=== PATIENT | male | born 1960 | race Caucasian/White ===

== ENCOUNTER 2020-06-16 10:38 | Day surgery (SDC) | payer SELFPAY ==
--- NOTE | 2020-06-12 14:24 | RAD REPORT ---
EXAM DESCRIPTION: RAD - Chest Pa And Lat (2 Views) - 06/12/2020 1:42 pm CLINICAL HISTORY: pre op Chest pain. COMPARISON: Chest Single View dated 03/01/2017 FINDINGS: The lungs are clear. The heart is normal in size. No displaced fractures. IMPRESSION: No acute or concerning finding suspected.
[2020-06-12 14:42] LABS: Urine Appearance CLEAR; Urine Bilirubin NEGATIVE (NEG); Urine Blood NEGATIVE (NEG); Urine Color YELLOW; Urine Glucose NEGATIVE (NEG); Urine Protein NEGATIVE (NEG); Urine Urobilinogen 0.2 mg/dL (0.2-1.0); Urine pH 7.5 (5.0-7.0)
[2020-06-12 14:43] LABS: Urine Microscopic Reflex NO UMIC
[~2020-06-16 10:38] MED LIST: AMPICILLIN SODIUM 2 GM in NA CHLORIDE 0.9% 100 ML IVPB SCH; Gentamicin Inj 240 MG in NA CHLORIDE 0.9% 100 ML IV SCH
--- OUTSIDE RECORDS SUMMARY | 2020-06-16 10:40 | XMS REPORT ---
:1960 Author Organization [facility] Address [address] [facility] [place] [address] Care Team Providers Name Role Phone Stephan Min Unavailable [phone] PROBLEMS Type Condition ICD9-CM [id number] Onset Condition SNOMED Code Notes Code Code Dates Status Problem BPH loc w urin N40.1 Active 819852147 obs/LUTS Problem Voiding N39.8 Active 177351911 dysfunction Problem History of Z87.448 Active 299065919 urethral stricture Problem Incomplete R33.9 Active 661835075 emptying of bladder ALLERGIES Allergen (clinical Drug/Non Drug Reaction Allergy Type Onset Date S tatus drug ingredient) Allergy documented on EMR CIPRO Unknown Non Drug Allergy Active ENCOUNTERS from 1960 to 2020-05-28 Encounter Location Date Provider Diagnosis [place] [facility] May, Stephan Min BPH loc w urin Specialty/Urology [address] [place], obs/L UTS N40.1 ; [place] [id number] Incomplete emp tying of bladder R33. 9 and Voiding dysfunc tion N39.8 IMMUNIZATIONS No Information SOCIAL HISTORY Tobacco Use: Social History Observation Description Date Details (start date - stop date) Never Smoker Sex Assigned At : Social History Observation Description Sex Assigned At Unknown Alcohol Screen Question Answer Notes Did you have a drink containing alcohol in the past year? No Points 0 Interpretation Negative Tobacco Use/Smoking Question Answer Notes Are you a never smoker REASON FOR REFERRAL No Information VITAL SIGNS Height 70 in May, Weight 183.6 lbs May, Temperature 98.3 degrees Fahrenheit May, BMI 26.34 kg/m2 May, Oximetry 98 % May, Blood pressure systolic 132 mm Hg May, Blood pressure diastolic 85 mm Hg May, MEDICATIONS Medication SIG (Take, Route, Frequency, Notes Start Date End Alejo e Status Duration) Uroxatral 10 MG 1 tablet immediately after the May,Dec, Unknown same meal Orally Once a day for 30 day(s) Flomax 0.4 MG 1 capsule Orally Once a day Unknown Uroxatral 10 MG 1 tablet immediately after the May,Dec, Unknown same meal Orally Once a day for 30 day(s) PROCEDURES No Information RESULTS No Results REASON FOR VISIT CYSTOSCOPY, PSA RESULTS MEDICAL (GENERAL) HISTORY Type Description Date Medical History BPH Surgical History PROSTATE SURGERY Goals Section No Information Health Concerns No Information MEDICAL EQUIPMENT No Information MENTAL STATUS No Information FUNCTIONAL STATUS No Information ASSESSMENTS Encounter Date Diagnosis Assessment Notes Treatment Notes Treatm ent Clinical Notes May, BPH loc w urin obs/LUTS (ICD-10 - N40.1) May, Incomplete emptying of bladder (ICD-10 - R33.9) May, Voiding dysfunction (ICD-10 - N39.8) PLAN OF TREATMENT Treatment Notes Test Name Order Date URINALYSIS AUTO W/O SCOPE ([id number]) 2020-05-28
--- OUTSIDE RECORDS SUMMARY | 2020-06-16 10:40 | XMS REPORT ---
:1960 Author Organization [facility] Address [address] [facility] [address] [place] [address] Care Team Providers Name Role Phone Stephan Min Unavailable [phone] PROBLEMS Type Condition ICD9-CM [id number] Onset Condition SNOMED Code Notes Code Code Dates Status Problem Incomplete R33.9 Active 782776811 emptying of bladder Problem BPH loc w urin N40.1 Active 431077894 obs/LUTS Problem History of Z87.448 Active 718850163 urethral stricture ALLERGIES Allergen (clinical Drug/Non Drug Reaction Allergy Type Onset Date S tatus drug ingredient) Allergy documented on EMR CIPRO Unknown Non Drug Allergy Active ENCOUNTERS from 1960 to 2020-05-21 Encounter Location Date Provider Diagnosis [place] 210 [facility] 200 May, Stephan Min Specialty/[place] [address] IMMUNIZATIONS No Information SOCIAL HISTORY Tobacco Use: [...] REASON FOR REFERRAL No Information VITAL SIGNS No information MEDICATIONS Medication SIG (Take, Route, Frequency, Notes Start Date End Alejo e Status Duration) Uroxatral 10 MG 1 tablet immediately after the May,Dec, Active same meal Orally Once a day for 30 day(s) Uroxatral 10 MG 1 tablet immediately after the 06 [place], 202 1 4 Aug, 2021 Active same meal Orally Once a day for 30 day(s) Flomax 0.4 MG 1 capsule Orally Once a day Active PROCEDURES No Information RESULTS No Results REASON FOR VISIT No Information MEDICAL (GENERAL) HISTORY Type Description Date Medical History BPH Surgical History PROSTATE SURGERY Goals Section No Information Health Concerns No Information MEDICAL EQUIPMENT No Information MENTAL STATUS No Information FUNCTIONAL STATUS No Information ASSESSMENTS No Information PLAN OF TREATMENT Medication Medication Name Sig Start Date Stop Date Uroxatral 10 MG 1 tablet immediately after the same meal May, 4 Dec, 2020 Orally Once a day for 30 day(s) Uroxatral 10 MG 1 tablet immediately after the same meal May, 4 Dec, 2020 Orally Once a day for 30 day(s) Next Appt Details Provider Name:Stephan Min, 09:30:00 AM, [address] [place] [address], [phone],
--- OUTSIDE RECORDS SUMMARY | 2020-06-16 10:40 | XMS REPORT | Continuity of Care Document ---
:1960 Author Organization [facility] t Address [address] [place] [address] [place] [address] Care Team Providers Name Role Phone Unavailable Unavailable Unavailable Problems This patient has no known problems. Allergies, Adverse Reactions, Alerts This patient has no known allergies or adverse reactions. Medications This patient has no known medications. Procedures This patient has no known procedures. Encounters Start End Encounter Admission Attending Care Care Encounter Source Date/Time Date/Time Type Type Clinicians Facility Department ID 2020-06-12 2020-06-12 Outpatient [facility] [id number] [facility] 2020-05-28 2020-05-28 [id number] 2020-05-20 2020-05-20 Outpatient [facility] [id number] [facility] 2020-05-20 2020-05-20 [facility] [id number] Results This patient has no known results.
--- OUTSIDE RECORDS SUMMARY | 2020-06-16 10:40 | XMS REPORT ---
:1960 Author Organization [facility] Address [address] [facility] [address] [place] [address] Care Team Providers Name Role Phone Pako Stephan Unavailable [phone] PROBLEMS Type Condition ICD9-CM [id number] Onset Condition SNOMED Code Notes Code Code Dates Status Problem BPH loc w urin N40.1 Active 250019381 obs/LUTS Problem Voiding N39.8 Active 698703402 dysfunction Problem History of Z87.448 Active 065709953 urethral stricture Problem Incomplete R33.9 Active 379711844 emptying of bladder ALLERGIES Allergen (clinical Drug/Non Drug Reaction Allergy Type Onset Date S tatus drug ingredient) Allergy documented on EMR CIPRO Unknown Non Drug Allergy Active ENCOUNTERS from 1960 to 2020-06-12 Encounter Location Date Provider Diagnosis [place] 210 [facility] 200 [place], Stephan Min Specialty/[place] [address] IMMUNIZATIONS No Information SOCIAL HISTORY Tobacco Use: [...] 10 MG 1 tablet immediately after the May, 4 Dec, 2020 Unknown same meal Orally Once a day for 30 day(s) PROCEDURES No Information RESULTS No Results REASON FOR VISIT No Information MEDICAL (GENERAL) HISTORY Type Description Date Medical History BPH Surgical History PROSTATE SURGERY Goals Section No Information Health Concerns No Information MEDICAL EQUIPMENT No Information MENTAL STATUS No Information FUNCTIONAL STATUS No Information ASSESSMENTS No Information PLAN OF TREATMENT Next Appt Details Provider Name:Stephan Min, 08:00:00 AM, [address] [place] [address], [phone],
--- OUTSIDE RECORDS SUMMARY | 2020-06-16 10:40 | XMS REPORT ---
:1960 Author Organization [facility] [place] [facility] Address [address] [facility], [address] [place] [address] Care Team Providers Name Role Phone Stephan Min Unavailable [phone] PROBLEMS Type Condition ICD9-CM [id number] Onset Condition SNOMED Code Notes Code Code Dates Status Problem Incomplete R33.9 Active 141696373 emptying of bladder Problem BPH loc w urin N40.1 Active 690739047 obs/LUTS Problem History of Z87.448 Active 311318893 urethral stricture ALLERGIES Allergen (clinical Drug/Non Drug Reaction Allergy Type Onset Date S tatus drug ingredient) Allergy documented on EMR CIPRO Unknown Non Drug Allergy Active ENCOUNTERS from 1960 to 2020-05-20 Encounter Location Date Provider Diagnosis [place] 210 [facility] May, Stephan Min BPH loc w urin Specialty/Urology [address] [place] [address], obs/L UTS N40.1 ; [place] [id number] Incomplete emp tying of bladder R33. 9 and History of urethral strict ure Z87.448 IMMUNIZATIONS No Information SOCIAL HISTORY Tobacco Use: [...] VITAL SIGNS Height 70 in May, Weight 183.4 lbs May, Temperature 98.4 degrees Fahrenheit May, BMI 26.31 kg/m2 May, Oximetry 98 % May, Blood pressure systolic 152 mm Hg May, Blood pressure diastolic 90 mm Hg May, MEDICATIONS Medication SIG (Take, [...] Information RESULTS No Results REASON FOR VISIT FISHER POUND NET OR TRAP/Urinary issues, WEAK [id number] A TURP X 10 YRS AGO MEDICAL (GENERAL) HISTORY Type Description Date Medical History BPH Surgical History PROSTATE SURGERY Goals Section No Information Health Concerns No Information MEDICAL EQUIPMENT No Information MENTAL STATUS No Information FUNCTIONAL STATUS No Information ASSESSMENTS Encounter Date Diagnosis Assessment Notes Treatment Notes Treatm ent Clinical Notes May, BPH loc w urin obs/LUTS (ICD-10 - N40.1) May, Incomplete emptying of bladder (ICD-10 - R33.9) May, History of urethral stricture (ICD-10 - Z87.448) PLAN OF TREATMENT Medication Medication Name Sig Start Date Stop Date Uroxatral 10 MG 1 tablet immediately after the same meal May, Dec, Orally Once a day for 30 day(s) Uroxatral 10 MG 1 tablet immediately after the same meal May, Dec, Orally Once a day for 30 day(s) Treatment Notes Test Name Order Date PSA (Free and Total) 2020-05-20 URINALYSIS AUTO W/O SCOPE ([id number]) 2020-05-20 PVR 2020-05-20 Next Appt Details Provider Name:Stephan Min, 09:30:00 AM, [address] [place] [address], [place], [phone],
[2020-06-16] MEDS ORDERED: FENTANYL CITR 100 MCG/2 ML ONE ×2 (10:55→11:32)
[2020-06-16] MEDS ORDERED: Ringers Lactate 1,000 ML IV ONE ×2 (11:15→13:20)
[2020-06-16 11:30] LABS: Basophils % 0.4 % (0-1.3); Hematocrit 41.8 % (39.6-49.0); Lymphocytes % 18.3 % (15.3-44.8); MPV 10.4 fL (7.6-11.3); Protime INR 0.93; RBC Red Blood Cell Count 4.79 M/uL (4.33-5.43)
[2020-06-16] MEDS ORDERED: ONDANSETRON 4 MG/2 ML VIAL ONE (11:32)
[2020-06-16] MEDS ORDERED: dexAMETHasone 10 MG/ML VIAL ONE (11:32)
[2020-06-16] MEDS ORDERED: LIDOCAINE 1% MPF 5 ML VIAL ONE (11:32)
[2020-06-16] MEDS ORDERED: propofoL 200 MG/20 ML VIAL IV ONE (11:32)
[2020-06-16] MEDS ORDERED: MIDAZOLAM HCL 2 MG/2 ML INJ ONE (11:32)
[2020-06-16 11:41] LABS: Potassium 4.1 mmol/L (3.5-5.1)
[2020-06-16] MEDS ORDERED: GLYCOPYRROLATE 0.2 MG/ML SYR ONE (11:47)
[2020-06-16] MEDS: HYDROMORPHONE HCL 1 MG/ML INJ ONE ×2 (13:05→13:10)
[2020-06-16] MEDS ORDERED: PROMETHAZINE INJ 25 MG/ML AMP ONE (13:25)
--- NOTE | 2020-06-16 13:57 | OP ---
Surgeon: MAYRA NEGRETE Preoperative Diagnoses: 1.BPH with urinary obstruction. 2.Incomplete emptying of the bladder. Postoperative Diagnoses: 1.BPH with urinary obstruction. 2.Incomplete emptying of the bladder. Principle Procedure: 1.Cystoscopy. 2.Transurethral resection of the prostate, bipolar. Indication For Procedure: Mr. Schilling presented to the Urology Clinic with bothersome urinary symptoms and moderate volume incomplete emptying. He underwent cystoscopic evaluation, which revealed some e vidence of prostatic urethral obstruction as well as a trabeculated bladder and because he had diffic ulty tolerating medical therapy and was significantly bothered, a surgical approach was 1 of his few options. He had a prior TURP years ago with another surgeon. That may have been done with a laser. Procedure In Detail: The patient was consented in the preoperative holding area before being transfe rred to the operative suite where general anesthesia was induced. He was given ampicillin and gentam icin IV antimicrobial prophylaxis. Pneumo boots were provided for DVT prophylaxis. He was placed in the lithotomy position, padded and secured to the table appropriately. The case was begun using ure thral sounds to dilate his meatus and fossa navicularis to 30-Nicaraguan. Then, using a visual obturator and a 26-Nicaraguan resectoscope sheath, the urethra was traversed and the bladder entered. The bladder was surveyed, and the ureteral orifices were orthotopic in location and there was an intravesical pr ojecting component of the median lobe that was abutting the trigone. The bladder itself was moderate ly trabeculated with some cellule formation. The prostatic urethra had a significant lateral lobar h ypertrophy and was notably very fibrotic and difficult to manipulate the scope within. As a result, I employed the bipolar loop electrode and began to resect the intravesical projection of the median l obe until the bladder neck was level with the trigone. I then resected the remainder of the median b ar down to the level of the verumontanum, which was spared. I then resected the left lateral lobe be fore turning my attention to the right lateral lobe and then any anterior lobar overhang from the severiano dder neck down to the verumontanum in order to create a widely patent trough. Once this was done, al l prostate chips were evacuated from the bladder, and a careful search for bleeding was undertaken. All bleeding vessels were pinpoint fulgurated until with the bladder decompressed, there was no ongoi ng oozing of blood. Once I was happy with the resection and the channel that had been created, I the n left his bladder full and removed the resectoscope. I then placed a 22-Nicaraguan 3-way Kaur catheter into his bladder with ease and placed 30 cc of sterile water into the balloon. The catheter was edward lee to moderate traction, and the patient was then awakened from general anesthesia, transferred to a stretcher, and then transferred to the recovery room in good condition. Complications: None. Discharge Disposition: He will follow up in the Urology Clinic on Monday for active voiding trial. He should then be discharged with instructions to continue to ensure that he is able to void with eas e over the next 6 hours. He should continue any medical therapy for BPH at this time to assist in st abilizing the bladder. Followup should thus be established with me in approximately 2 to 4 weeks lat er for interval assessment and any management considerations. He was given a prescription for Bactri m which he should take at least 24-48 hours after the catheters removed. He was also given a prescri ption for [facility] for pain management. CHIKA/MODL Voice ID: [id number] Report ID: [id number]
[2020-06-16 18:35] VITALS: TEMP 96.9
[2020-06-16 18:36] VITALS: BP 117/75; O2SAT 99
== END 2020-06-16 16:30 | disposition home or self-care (01) ==
LOC: OR 10:38
PROVIDERS: ATTEND Urology
PROC: 0TJB8ZZ Inspection of Bladder, Via Natural or Artificial Opening Endoscopic (ICD-10-PCS; principal; 2020-06-16 12:15)
DX: C61 Malignant neoplasm of prostate (principal); R33.9 Retention of urine, unspecified; N39.8 Other specified disorders of urinary system; Z20.822 Contact with and (suspected) exposure to COVID-19
CPT/HCPCS: 36415; 71046; 80048; 81003; 85025; 85610; 87086; 87088; 88305; 93005; J0290; J1100; J1170; J1580; J2250; J2405; J2550; J2704; J3010; J7120; U0002

== ENCOUNTER 2020-06-21 22:09 | Emergency (ER) | payer SELFPAY ==
--- OUTSIDE RECORDS SUMMARY | 2020-06-21 22:11 | XMS REPORT | Continuity of Care Document ---
:1960 Author Organization [facility] t Address [address] [place] [address] Care Team Providers Name Role Phone Unavailable [...] Clinicians Facility Department ID 2020-06-12 2020-06-12 Outpatient [facility] [id number] [facility] 2020-05-28 2020-05-28 [facility] [id number] [facility] 2020-05-20 2020-05-20 Outpatient [facility] [id number] [facility] 2020-05-20 2020-05-20 [facility] [id number] [facility] Results This patient has no known results.
[2020-06-21 23:42] LABS: Urine Bacteria <20 /HPF (NONE SEEN); Urine RBC 20-50 /HPF (NONE SEEN)
[2020-06-21 23:44] LABS: Urine Blood 3+ (NEG); Urine Glucose TRACE (NEG); Urine Protein 2+ (NEG); Urine Specific Gravity 1.015 (1.005-1.030); Urine pH 5.5 (5.0-7.0)
--- NOTE | 2020-06-22 00:36 | ER ---
Nurse's Notes [facility] Name: Vernon Schilling Age: 59 yrs Sex: Male : 1960 Arrival Date: 06/21/2020 Time: 22:12 Bed 8 Private MD: Diagnosis: Urinary Retention Presentation: 06/21 22:45 Chief complaint: Patient states: Urinary retention x 2 days; reports TURP procedure on lp1 06/16/20, catheter removed 06/19/20; Patient reports dribbling and abdominal distention. Coronavirus screen: Client denies travel out of the [place] in the last 14 days. At this time, the client does not indicate any symptoms associated with coronavirus-19. The client reports previous COVID testing was negative. Date of collection: June 13, 2020. Ebola Screen: No symptoms or risks identified at this time. Initial Sepsis Screen: Does the patient meet any 2 criteria? No. Patient's initial sepsis screen is negative. Does the patient have a suspected source of infection? No. Patient's initial sepsis screen is negative. Risk Assessment: Do you want to hurt yourself or someone else? Patient reports no desire to harm self or others. Onset of symptoms was June 21, 2020. 22:45 Method Of Arrival: Wheelchair lp1 22:45 Acuity: ARIEL 3 lp1 22:48 Note Patient reports speaking with doctor who performed procedure, recommended to lp1 insert 18 Portuguese Coude Kaur catheter; provider notified. Historical: - Allergies: 22:47 Ciprofloxacin; lp1 - Home Meds: 22:47 Bactrim DS Oral [Active]; Xanax Oral [Active]; lp1 - PMHx: 22:47 Anxiety; lp1 - PSHx: 22:47 TURP; lp1 - Immunization history:: Adult Immunizations up to date. - Social history:: Smoking status: Patient denies any tobacco usage or history of. Screenin:47 Abuse screen: Denies threats or abuse. Denies injuries from another. Nutritional lp1 screening: No deficits noted. Tuberculosis screening: No symptoms or risk factors identified. Fall Risk None identified. Assessment: 23:05 General: Appears in no apparent distress. uncomfortable, Behavior is calm, cooperative, rr5 appropriate for age. 23:05 Pain: Complains of pain in pelvis Pain currently is 10 out of 10 on a pain scale. rr5 Quality of pain is described as aching, Pain began gradually, Is continuous. 23:05 Neuro: Level of Consciousness is awake, alert, obeys commands, Oriented to person, rr5 place, time. Cardiovascular: Capillary refill < 3 seconds Patient's skin is warm and dry. Respiratory: Airway is patent Respiratory effort is even, unlabored, Respiratory pattern is regular, symmetrical. GI: Abdomen is round Abdomen is tender to palpation in right lower quadrant and left lower quadrant Reports lower abdominal pain. : Bladder is distended Reports inability to void, pain. EENT: No signs and/or symptoms were reported regarding the EENT system. Derm: Skin is intact, Skin temperature is warm. Musculoskeletal: Capillary refill < 3 seconds. 06/22 00:45 Reassessment: Patient appears in no apparent distress at this time. Patient is alert, rr5 oriented x 3, equal unlabored respirations, skin warm/dry/pink. discharge instruction given and explained without complaints made Patient states feeling better. Patient states symptoms have improved. Vital Signs: 06/21 22:45 BP 127 / 93; Pulse 107; Resp 18; Temp 97.8(O); Pulse Ox 99% on R/A; Weight 84.37 kg lp1 (R); Height 5 ft. 10 in. (177.80 cm); Pain 8/10; 06/22 00:30 BP 113 / 84; Pulse 79; Resp 16; Pulse Ox 99% ; rr5 06/21 22:45 Body Mass Index 26.69 (84.37 kg, 177.80 cm) lp1 ED Course: 06/21 22:12 Patient arrived in ED. am4 22:36 Michael Oviedo, SHERRELL is Primary Nurse. rr5 22:40 Trenton Xiong MD is Attending Physician. mh7 22:46 Triage completed. lp1 22:46 Arm band placed on. lp1 23:05 Patient has correct armband on for positive identification. Placed in gown. Bed in low rr5 position. Call light in reach. 23:05 Pulse ox on. NIBP on. rr5 23:30 Coud inserted, using sterile technique, 18 Fr. Returned clear yellow urine. To gravity rr5 drainage. Urine specimen collected. Patient tolerated well. 06/22 00:35 Stephan Min MD is Referral Physician. 7 00:46 No provider procedures requiring assistance completed. Patient did not have IV access rr5 during this emergency room visit. Administered Medications: No medications were administered Output: 02 23:47 Urine: 1800ml (Kaur); Total: 1800ml. rr5 06/22 00:05 Urine: 200ml (Voided); Total: 2000ml. rr5 00:45 Urine: 500ml (Kaur); Total: 2500ml. rr5 Outcome: 00:36 Discharge ordered by . 7 00:46 Discharged to home ambulatory. rr5 00:46 Condition: stable 00:46 Discharge instructions given to patient, Instructed on discharge instructions, follow up and referral plans. with coude catheter to leg bag catheter care Demonstrated understanding of instructions, follow-up care, catheter care 00:48 Patient left the ED. rr5 Signatures: Sheree Vo RN RN lp1 Michael Oviedo RN RN rr5 Trenton Xiong MD MD 7 Kat Velázquez [facility]
--- NOTE | 2020-06-22 00:36 | EDPHYS ---
Physician Documentation [facility] Name: Vernon Schilling Age: 59 yrs Sex: Male : 1960 Arrival Date: 06/21/2020 Time: 22:12 Bed 8 Private MD: ED Physician Trenton Xiong HPI: 06/21 22:49 This 59 yrs old Male presents to ER via Wheelchair with complaints of Urinary mh7 Retention. 22:49 The patient presents with urinary symptoms, retention. Onset: The symptoms/episode mh7 began/occurred 2 day(s) ago. Modifying factors: The symptoms are alleviated by nothing, the symptoms are aggravated by nothing. Associated signs and symptoms: Pertinent negatives: abdominal pain, constipation, diarrhea, dysuria, fever, hematuria, nausea, vomiting. Severity of symptoms: At their worst the symptoms were moderate, yesterday, in the emergency department the symptoms are unchanged. Patient had TURP on 06/16/20 then had Kaur removed on 06/19/20. He later started have difficulty fully emptying bladder. he has been urinating small amounts with each void and feels like his bladder is still full.. Historical: - Allergies: 22:47 Ciprofloxacin; lp1 - Home Meds: 22:47 Bactrim DS Oral [Active]; Xanax Oral [Active]; lp1 - PMHx: 22:47 Anxiety; lp1 - PSHx: 22:47 TURP; lp1 - Immunization history:: Adult Immunizations up to date. - Social history:: Smoking status: Patient denies any tobacco usage or history of. ROS: 22:49 Constitutional: Negative for fever, chills, and weight loss, Eyes: Negative for injury, mh7 pain, redness, and discharge, ENT: Negative for injury, pain, and discharge, Neck: Negative for injury, pain, and swelling, Cardiovascular: Negative for chest pain, palpitations, and edema, Respiratory: Negative for shortness of breath, cough, wheezing, and pleuritic chest pain, Abdomen/GI: Negative for abdominal pain, nausea, vomiting, diarrhea, and constipation, Back: Negative for injury and pain, MS/Extremity: Negative for injury and deformity, Skin: Negative for injury, rash, and discoloration, Neuro: Negative for headache, weakness, numbness, tingling, and seizure, Psych: Negative for depression, anxiety, suicide ideation, homicidal ideation, and hallucinations, Allergy/Immunology: Negative for hives, rash, and allergies, Endocrine: Negative for neck swelling, polydipsia, polyuria, polyphagia, and marked weight changes, Hematologic/Lymphatic: Negative for swollen nodes, abnormal bleeding, and unusual bruising. Exam: 22:49 Constitutional: This is a well developed, well nourished patient who is awake, alert, mh7 and in no acute distress. Head/Face: Normocephalic, atraumatic. Eyes: Pupils equal round and reactive to light, extra-ocular motions intact. Lids and lashes normal. Conjunctiva and sclera are non-icteric and not injected. Cornea within normal limits. Periorbital areas with no swelling, redness, or edema. Neck: Trachea midline, no thyromegaly or masses palpated, and no cervical lymphadenopathy. Supple, full range of motion without nuchal rigidity, or vertebral point tenderness. No Meningismus. Chest/axilla: Normal chest wall appearance and motion. Nontender with no deformity. No lesions are appreciated. Cardiovascular: Regular rate and rhythm with a normal S1 and S2. No gallops, murmurs, or rubs. Normal PMI, no JVD. No pulse deficits. Respiratory: Lungs have equal breath sounds bilaterally, clear to auscultation and percussion. No rales, rhonchi or wheezes noted. No increased work of breathing, no retractions or nasal flaring. 23:56 Abdomen/GI: Soft, non-tender, with normal bowel sounds. No distension or tympany. No mh7 guarding or rebound. No evidence of tenderness throughout. Back: No spinal tenderness. No costovertebral tenderness. Full range of motion. 23:56 Skin: Warm, dry with normal turgor. Normal color with no rashes, no lesions, and no evidence of cellulitis. MS/ Extremity: Pulses equal, no cyanosis. Neurovascular intact. Full, normal range of motion. Neuro: Awake and alert, GCS 15, oriented to person, place, time, and situation. Cranial nerves II-XII grossly intact. Motor strength 5/5 in all extremities. Sensory grossly intact. Cerebellar exam normal. Normal gait. Psych: Awake, alert, with orientation to person, place and time. Behavior, mood, and affect are within normal limits. 23:56 : CVA tenderness, is absent, Bladder: distension, that is moderate, tenderness, is not appreciated. Vital Signs: 22:45 BP 127 / 93; Pulse 107; Resp 18; Temp 97.8(O); Pulse Ox 99% on R/A; Weight 84.37 kg lp1 (R); Height 5 ft. 10 in. (177.80 cm); Pain 8/10; 06/22 00:30 BP 113 / 84; Pulse 79; Resp 16; Pulse Ox 99% ; rr5 06/21 22:45 Body Mass Index 26.69 (84.37 kg, 177.80 cm) lp1 MDM: 00:34 Differential diagnosis: UTI, urinary retention, Kaur catheter problem, prostatitis, mh7 urethritis. Data reviewed: vital signs, nurses notes, lab test result(s), urinalysis, bacteruria. Data interpreted: Pulse oximetry: on room air is 99 %. Interpretation: normal. Counseling: I had a detailed discussion with the patient and/or guardian regarding: the historical points, exam findings, and any diagnostic results supporting the discharge/admit diagnosis, lab results, the need for outpatient follow up, a urologist, to return to the emergency department if symptoms worsen or persist or if there are any questions or concerns that arise at home. Response to treatment: the patient's symptoms have resolved after treatment, the patient's blood pressure is in an acceptable range, mental status has returned to baseline, the patient no longer shows bradycardia, the patient is not short of breath, the patient is not tachycardic, the patient's pain is gone, the patient's temperature has normalized. 00:36 Patient medically screened. 7 06/21 23:29 Order name: Urine Microscopic Only; Complete Time: 00:08 rr5 06/21 23:37 Order name: Urine Dipstick--Ancillary (enter results); Complete Time: 00:08 tt3 06/21 23:29 Order name: Cath; Complete Time: 23:30 rr5 02 23:29 Order name: Urine Dipstick-Ancillary (obtain specimen); Complete Time: 23:30 rr5 06/22 00:34 Order name: Urine Culture [facility] 06/22 00:48 Order name: Leg Bag; Complete Time: 00:48 rr5 Administered Medications: No medications were administered Disposition: 06/22/20 00:36 Discharged to Home. Impression: Urinary Retention. - Condition is Stable. - Discharge Instructions: Acute Urinary Retention, Male, [id number], Kaur Catheter Care, Adult, [id number]. - Medication Reconciliation Form, Thank You Letter, Antibiotic Education, Prescription Opioid Use form. - Follow up: Private Physician; When: 1 - 2 days; Reason: Worsening of condition, Recheck today's complaints, Continuance of care, Re-evaluation by your physician. Follow up: Stephan Min MD; When: 1 - 2 days; Reason: Worsening of condition, Recheck today's complaints, Continuance of care, Re-evaluation by your physician. - Problem is new. - Symptoms are resolved. Signatures: Dispatcher [employer] EDSheree Cochran RN RN lp1 Michael Oviedo RN RN rr5 Trenton Xiong MD MD mh7 Corrections: (The following items were deleted from the chart) 00:48 00:36 06/22/2020 00:36 Discharged to Home. Impression: Urinary Retention. Condition is rr5 Stable. Forms are Medication Reconciliation Form, Thank You Letter, Antibiotic Education, Prescription Opioid Use. Follow up: Private Physician; When: 1 - 2 days; Reason: Worsening of condition, Recheck today's complaints, Continuance of care, Re-evaluation by your physician. Follow up: Stephan Min; When: 1 - 2 days; Reason: Worsening of condition, Recheck today's complaints, Continuance of care, Re-evaluation by your physician. Problem is new. Symptoms are resolved. mh7
[2020-06-22 01:00] VITALS: TEMP 97.8; O2SAT 99
[2020-06-22 01:02] VITALS: BP 113/84
== END 2020-06-22 00:48 | disposition home or self-care (01) ==
LOC: ER 22:09
DX: R33.9 Retention of urine, unspecified (principal); F41.9 Anxiety disorder, unspecified
CPT/HCPCS: 81003; 81015; 87086; 87088; 99284

== ENCOUNTER 2022-12-07 10:07 | Emergency (ER) | payer SELFPAY ==
--- OUTSIDE RECORDS SUMMARY | 2022-12-07 10:13 | XMS REPORT | Continuity of Care Document ---
:1960 Author Organization [facility] t Address [address] [place] [address] Care Team Providers Name Role Phone Unavailable Unavailable Unavailable Problems Condition Condition Condition Status Onset Resolution Last Treating Co mments Source Name Details Category Date Date Treatment Clinician Date [id number] Incomplete Problem Active Co mmon emptying Spirit of bladder [facility] [id number] BPH loc w Problem Active Com mon urin Spirit obs/LUTS - [facility] [id number] History of Problem Active Co mmon urethral [facility] stricture [facility] [id number] Voiding Problem Active Commo n dysfunctio [facility] n [facility] [id number] Cancer of Problem Active Comm on prostate [facility] w/low - [facility] (T1-2a, [facility] & PSA<10) Benign BPH Problem Active Common prostatic (benign Spirit hyperplasi prostatic - [facility] a hyperplasi [facility]) [facility] [id number] ED Problem Active Common (erectile [facility]ctio [facility] Allergies, Adverse Reactions, Alerts This patient has no known allergies or adverse reactions. Social History Social Habit Start Date Stop Date Quantity Comments Source History of Tobacco Use Co mmon [facility] Sex Assigned At Com mon [facility] Smoking Status Start Date Stop Date Source Never Smoker Common [facility] Medications Ordered Filled Start Stop Current Ordering Indication Dosage Frequency Signature Comments Components Source Medication Medication Date Date Medication? Clinician (SIG) Name Name Viagra 100 Viagra 100 2020-2020- No QD Viagra 100 MG MG 3-15 10-11 MG 00:00: 00:00 00 :00 Bactrim DS Bactrim DS 2020-2020- No 1{table BID Bactrim DS 800-160 MG 800-160 MG 06-16 t} 800-160 MG 00:00: 00:00 00 :00 Bactrim DS Bactrim DS 2020-2020- No 1{table BID Bactrim DS 800-160 MG 800-160 MG 06-16 t} 800-160 MG 00:00: 00:00 00 :00 Bactrim DS Bactrim DS 2020-2020- No 1{table BID Bactrim DS 800-160 MG 800-160 MG 06-16 t} 800-160 MG 00:00: 00:00 00 :00 Schofield 5-325 Schofield 5-325 2020-2020- No 1{table QID Schofield MG MG 06-16 t_as_ne 5-325 MG 00:00: 00:00 eded} 00 :00 Uroxatral Uroxatral 2020-2020- No 1{table QD Uroxatral 10 MG 10 MG 05-20 t_immed 10 MG 00:00: 00:00 iately_ 00 :00 after_t he_same _meal} Uroxatral Uroxatral 2020-2020- No 1{table QD Uroxatral 10 MG 10 MG 05-20 t_immed 10 MG 00:00: 00:00 iately_ 00 :00 after_t he_same _meal} Uroxatral Uroxatral 2020-2020- No 1{table QD Uroxatral 10 MG 10 MG 05-20 t_immed 10 MG 00:00: 00:00 iately_ 00 :00 after_t he_same _meal} Uroxatral Uroxatral 2020-2020- No 1{table QD Uroxatral 10 MG 10 MG 05-20 t_immed 10 MG 00:00: 00:00 iately_ 00 :00 after_t he_same _meal} Uroxatral Uroxatral 2020-0 2020- No 1{table QD Uroxatral 10 MG 10 MG 05-20 t_immed 10 MG 00:00: 00:00 iately_ 00 :00 after_t he_same _meal} Uroxatral Uroxatral 2020-0 2020- No 1{table QD Uroxatral 10 MG 10 MG 05-20 t_immed 10 MG 00:00: 00:00 iately_ 00 :00 after_t he_same _meal} Uroxatral Uroxatral 2020-0 2020- No 1{table QD Uroxatral 10 MG 10 MG 05-20 t_immed 10 MG 00:00: 00:00 iately_ 00 :00 after_t he_same _meal} Uroxatral Uroxatral 2020-2020- No 1{table QD Uroxatral 10 MG 10 MG 05-20 t_immed 10 MG 00:00: 00:00 iately_ 00 :00 after_t he_same _meal} Uroxatral Uroxatral 2020-0 1- No 1{table QD Uroxatral 10 MG 10 MG 05-20 t_immed 10 MG 00:00: 00:00 iately_ 00 :00 after_t he_same _meal} Uroxatral Uroxatral 2020-0 1- No 1{table QD Uroxatral 10 MG 10 MG 05-20 t_immed 10 MG 00:00: 00:00 iately_ 00 :00 after_t he_same _meal} Uroxatral Uroxatral 2020-0 1- No 1{table QD Uroxatral 10 MG 10 MG 05-20 t_immed 10 MG 00:00: 00:00 iately_ 00 :00 after_t he_same _meal} Uroxatral Uroxatral 2020-0 2020- No 1{table QD Uroxatral 10 MG 10 MG 05-20 t_immed 10 MG 00:00: 00:00 iately_ 00 :00 after_t he_same _meal} Uroxatral Uroxatral 2020-0 2020- No 1{table QD Uroxatral 10 MG 10 MG 05-20 t_immed 10 MG 00:00: 00:00 iately_ 00 :00 after_t he_same _meal} Uroxatral Uroxatral 1- No 1{table QD Uroxatral 10 MG 10 MG 05-20 t_immed 10 MG 00:00: 00:00 iately_ 00 :00 after_t he_same _meal} Uroxatral Uroxatral 2020-1- No 1{table QD Uroxatral 10 MG 10 MG 05-20 t_immed 10 MG 00:00: 00:00 iately_ 00 :00 after_t he_same _meal} Uroxatral Uroxatral 2020-1- No 1{table QD Uroxatral 10 MG 10 MG 05-20 t_immed 10 MG 00:00: 00:00 iately_ 00 :00 after_t he_same _meal} Uroxatral Uroxatral 2020-1- No 1{table QD Uroxatral 10 MG 10 MG 05-20 t_immed 10 MG 00:00: 00:00 iately_ 00 :00 after_t he_same _meal} Uroxatral Uroxatral 2020-1- No 1{table QD Uroxatral 10 MG 10 MG 05-20 t_immed 10 MG 00:00: 00:00 iately_ 00 :00 after_t he_same _meal} Flomax 0.4 Flomax 0.4 No 1{capsu QD Flomax 0.4 MG MG le} MG Flomax 0.4 Flomax 0.4 No 1{capsu QD Flomax 0.4 MG MG le} MG Flomax 0.4 Flomax 0.4 No 1{capsu QD Flomax 0.4 MG MG le} MG Flomax 0.4 Flomax 0.4 No 1{capsu QD Flomax 0.4 MG MG le} MG Flomax 0.4 Flomax 0.4 No 1{capsu QD Flomax 0.4 MG MG le} MG Flomax 0.4 Flomax 0.4 No 1{capsu QD Flomax 0.4 MG MG le} MG Flomax 0.4 Flomax 0.4 No 1{capsu QD Flomax 0.4 MG MG le} MG Flomax 0.4 Flomax 0.4 No 1{capsu QD Flomax 0.4 MG MG le} MG Flomax 0.4 Flomax 0.4 No 1{capsu QD Flomax 0.4 MG MG le} MG Vital Signs Vital Name Observation Time Observation Value Comments Source bmi 2020-07-27 11:00:00 26.34 kg/m2 Common S pirit [facility] oximetry 2020-07-27 11:00:00 97 % [facility] blood pressure 2020-07-27 11:00:00 136 mm[Hg] [facility] - systolic [facility] blood pressure 2020-07-27 11:00:00 82 mm[Hg] [facility] - diastolic [facility] height 2020-07-27 11:00:00 70 [in_i] [facility] weight 2020-07-27 11:00:00 183.6 [lb_av] [facility] temperature 2020-07-27 11:00:00 98.7 [degF] [facility] height 2020-07-13 10:15:00 70 [in_i] [facility] S [facility] weight 2020-07-13 10:15:00 183.6 [lb_av] [facility] temperature 2020-07-13 10:15:00 95.8 [degF] [facility] bmi 2020-07-13 10:15:00 26.34 kg/m2 [facility] S [facility] oximetry 2020-07-13 10:15:00 97 % [facility] S [facility] blood pressure 2020-07-13 10:15:00 150 mm[Hg] [facility] - systolic [facility] blood pressure 2020-07-13 10:15:00 93 mm[Hg] [facility] - diastolic [facility] height 2020-06-19 09:30:00 70 [in_i] Common S pirit [facility] weight 2020-06-19 09:30:00 183.6 [lb_av] [facility] - [facility] temperature 2020-06-19 09:30:00 97.1 [degF] [facility] S [facility] - [facility] bmi 2020-06-19 09:30:00 26.34 kg/m2 [facility] S [facility] - [facility] oximetry 2020-06-19 09:30:00 96 % [facility] S pirit - [facility] blood pressure 2020-06-19 09:30:00 139 mm[Hg] [facility] - systolic [facility] blood pressure 2020-06-19 09:30:00 85 mm[Hg] [facility] - diastolic [facility] height 2020-05-28 14:30:00 70 [in_i] Common S p[facility] weight 2020-05-28 14:30:00 183.6 [lb_av] [facility] temperature 2020-05-28 14:30:00 98.3 [degF] Common S pirit - [facility] bmi 2020-05-28 14:30:00 26.34 kg/m2 [facility] S p[facility] - [facility] oximetry 2020-05-28 14:30:00 98 % Common S pirit - [facility] blood pressure 2020-05-28 14:30:00 132 mm[Hg] [facility] - systolic [facility] blood pressure 2020-05-28 14:30:00 85 mm[Hg] [facility] - diastolic [facility] temperature 2020-05-20 10:30:00 98.4 [degF] [facility] S pirit - [facility] bmi 2020-05-20 10:30:00 26.31 kg/m2 Common S pirit - [facility] oximetry 2020-05-20 10:30:00 98 % [facility] S [facility] - [facility] blood pressure 2020-05-20 10:30:00 152 mm[Hg] [facility] - systolic [facility] blood pressure 2020-05-20 10:30:00 90 mm[Hg] [facility] - diastolic [facility] height 2020-05-20 10:30:00 70 [in_i] [facility] S pirit [facility] weight 2020-05-20 10:30:00 183.4 [lb_av] Common [facility] Procedures This patient has no known procedures. Encounters Start End Encounter Admission Attending Care Care Encounter Source Date/Time Date/Time Type Type Clinicians Facility Department ID 2021-06-09 Outpatient STLMLC STLMLC [id number] Common 12:18:25 [id number] [facility] 2020-07-27 2020-07-27 OFFICE STLMLC STLMLC [id number] Co mmon 00:00:00 00:00:00 VISIT [facility] PT [address] 2020-07-13 2020-07-13 NON-BILLAB STLMLC STLMLC [id number] Common 00:00:00 00:00:00 LE VISIT [facility] 2020-07-01 2020-07-01 (TEL) STLMLC STLMLC [id number] Co mmon 00:00:00 00:00:00 [facility] 2020-06-23 2020-06-23 (TEL) STLMLC STLMLC [id number] Co mmon 00:00:00 00:00:00 [facility] 2020-06-22 2020-06-22 (TEL) STLMLC STLMLC [id number] Co mmon 00:00:00 00:00:00 [facility] 2020-06-19 2020-06-19 NON-BILLAB STLMLC STLMLC [id number] Common 00:00:00 00:00:00 LE VISIT [facility] 2020-06-12 2020-06-12 (TEL) STLMLC STLMLC [id number] Co mmon 00:00:00 00:00:00 [facility] 2020-05-28 2020-05-28 OFFICE STLMLC STLMLC [id number] Co mmon 00:00:00 00:00:00 VISIT [facility] PT - [address] 2020-05-20 2020-05-20 OFFICE STLC STLC [id number] Co mmon 00:00:00 00:00:00 VISIT NEW [facility] PT LEVEL 3 - [facility] 2020-05-20 2020-05-20 (TEL) STLC STLC [id number] Co mmon 00:00:00 00:00:00 [facility] Results This patient has no known results.
[2022-12-07] MEDS ORDERED: IBUPROFEN 400 MG TAB ONE (11:10)
--- NOTE | 2022-12-07 12:45 | EDPHYS ---
Physician Documentation [facility] Name: Vernon Schilling Age: 61 yrs Sex: Male : 1960 Arrival Date: 12/07/2022 Time: 10:07 Bed 11 Private MD: Asad Little ED Physician Paulo Dolan HPI: 12/07 11:25 This 61 yrs old Male presents to ER via Ambulatory with complaints of Hand david Pain, Fall Injury - 2wks ago. 11:25 The patient or guardian reports decreased range of motion, pain, swelling, tenderness. david The complaints affect the MCP of right thumb and CMC of right thumb. Context: The problem was sustained outdoors, resulted from a fall. Onset: The symptoms/episode began/occurred 14 day(s) ago. Modifying factors: The symptoms are alleviated by holding still, the symptoms are aggravated by movement, dependent position. Associated signs and symptoms: The patient has no apparent associated signs or symptoms. Severity of symptoms: At their worst the symptoms were moderate, in the emergency department the symptoms are unchanged. The patient has not experienced similar symptoms in the past. Historical: - Allergies: 10:13 Ciprofloxacin; aa5 - PMHx: 10:13 Anxiety; aa5 - Immunization history:: Adult Immunizations unknown. - Social history:: Smoking status: Patient denies any tobacco usage or history of. - Family history:: not pertinent. ROS: 11:25 Constitutional: Negative for fever, chills, and weight loss, Eyes: Negative for injury, david pain, redness, and discharge, ENT: Negative for injury, pain, and discharge, Neck: Negative for injury, pain, and swelling, Cardiovascular: Negative for chest pain, palpitations, and edema, Respiratory: Negative for shortness of breath, cough, wheezing, and pleuritic chest pain, Abdomen/GI: Negative for abdominal pain, nausea, vomiting, diarrhea, and constipation, Back: Negative for injury and pain, : Negative for injury, bleeding, discharge, and swelling, Skin: Negative for injury, rash, and discoloration, Neuro: Negative for headache, weakness, numbness, tingling, and seizure, Psych: Negative for depression, anxiety, suicide ideation, homicidal ideation, and hallucinations, Allergy/Immunology: Negative for hives, rash, and allergies, Endocrine: Negative for neck swelling, polydipsia, polyuria, polyphagia, and marked weight changes, Hematologic/Lymphatic: Negative for swollen nodes, abnormal bleeding, and unusual bruising. 11:25 MS/extremity: Positive for decreased range of motion, pain, swelling, tenderness, of the dorsal aspect of proximal phalanx of right thumb and palmar aspect of proximal phalanx of right thumb. Exam: 11:25 Constitutional: This is a well developed, well nourished patient who is awake, alert, david and in no acute distress. Head/Face: Normocephalic, atraumatic. Eyes: Pupils equal round and reactive to light, extra-ocular motions intact. Lids and lashes normal. Conjunctiva and sclera are non-icteric and not injected. Cornea within normal limits. Periorbital areas with no swelling, redness, or edema. ENT: Nares patent. No nasal discharge, no septal abnormalities noted. Tympanic membranes are normal and external auditory canals are clear. Oropharynx with no redness, swelling, or masses, exudates, or evidence of obstruction, uvula midline. Mucous membranes moist. Neck: Trachea midline, no thyromegaly or masses palpated, and no cervical lymphadenopathy. Supple, full range of motion without nuchal rigidity, or vertebral point tenderness. No Meningismus. Chest/axilla: Normal chest wall appearance and motion. Nontender with no deformity. No lesions are appreciated. Cardiovascular: Regular rate and rhythm with a normal S1 and S2. No gallops, murmurs, or rubs. Normal PMI, no JVD. No pulse deficits. Respiratory: Lungs have equal breath sounds bilaterally, clear to auscultation and percussion. No rales, rhonchi or wheezes noted. No increased work of breathing, no retractions or nasal flaring. Abdomen/GI: Soft, non-tender, with normal bowel sounds. No distension or tympany. No guarding or rebound. No evidence of tenderness throughout. Back: No spinal tenderness. No costovertebral tenderness. Full range of motion. Skin: Warm, dry with normal turgor. Normal color with no rashes, no lesions, and no evidence of cellulitis. Neuro: Awake and alert, GCS 15, oriented to person, place, time, and situation. Cranial nerves II-XII grossly intact. Motor strength 5/5 in all extremities. Sensory grossly intact. Cerebellar exam normal. Normal gait. Psych: Awake, alert, with orientation to person, place and time. Behavior, mood, and affect are within normal limits. 11:25 Musculoskeletal/extremity: Extremities: noted in the dorsal aspect of proximal phalanx of right thumb: decreased ROM, pain, ROM: limited active range of motion, limited passive range of motion, limited active range of motion due to pain, limited passive range of motion due to pain, Circulation is intact in all extremities. Sensation intact. Compartment Syndrome exam of affected extremity: is normal. Tendon exam: Vital Signs: 10:12 BP 133 / 91; Pulse 82; Resp 18 S; Temp 97.9(TE); Pulse Ox 100% on R/A; Weight 81.65 kg aa5 (R); Height 5 ft. 10 in. (R); 10:12 Body Mass Index 25.83 (81.65 kg, 177.8 cm) aa5 MDM: 10:10 Patient medically screened. [facility] 11:31 Differential diagnosis: dislocation, closed fracture, contusion, abrasion, tendonitis. [facility] Data reviewed: vital signs, nurses notes, radiologic studies, plain films. Consideration of Admission/Observation Escalation of care including admission/observation considered. I considered the following discharge prescriptions or medication management in the emergency department Medications were administered in the Emergency Department. See MAR. Test considered but Not performed: Labs: no labs. 12/07 10:55 Order name: Hand Right 3 View XRAY [facility] 12/07 10:55 Order name: Ice pack; Complete Time: 10:[address] [facility] 12/07 11:35 Order name: Thumb Spica Splint; Complete Time: 12:[address] [facility] Administered Medications: 11:07 Drug: Ibuprofen PO 800 mg Route: PO; ll1 12:15 Follow up: Response: No adverse reaction ll1 Disposition Summary: 12/07/22 12:45 Discharge Ordered Location: Home david Problem: new david Symptoms: have improved david Condition: Stable david Diagnosis - Other sprain of right thumb david Followup: david - With: - When: 2 - 3 days - Reason: Recheck today's complaints, Continuance of care, Re-evaluation by your physician Followup: david - With: - When: 2 - 3 days - Reason: Recheck today's complaints, Re-evaluation by your physician Discharge Instructions: - Discharge Summary Sheet david - Thumb Sprain david - Skier's Thumb david Forms: - Medication Reconciliation Form david - Thank You Letter david - Antibiotic Education david - Prescription Opioid Use david - Patient Portal Instructions [facility] Prescriptions: - acetaminophen-codeine 300-30 mg Oral tablet - take 2 tablet by ORAL route every 6 hours as needed for pain; 20 tablet; [facility] Refills: 0, Product Selection Permitted - Ibuprofen 600 mg Oral Tablet - take 1 tablet by ORAL route every 6 hours As needed take with food; 30 tablet; [facility] Refills: 0, Product Selection Permitted - Medrol ([place]) 4 mg Oral Tablets, Dose Pack - take 1 tablet by ORAL route as directed - follow package instructions; [address] [facility] packet; Refills: 0, Product Selection Permitted Signatures: Dispatcher [employer] Paulo Osullivan MD MD cha Calderon, Audri, RN RN aa5 Rios Kiran RN RN ll1
--- NOTE | 2022-12-07 12:45 | ER ---
Nurse's Notes [facility] Name: Vernon Schilling Age: 61 yrs Sex: Male : 1960 Arrival Date: 12/07/2022 Time: 10:07 Bed 11 Private MD: Asad Little Diagnosis: Other sprain of right thumb Presentation: 12/07 10:12 Chief complaint: Patient states: fell onto right hand chasing after his dog 2 weeks aa5 ago. Pt c/o right thumb pain. Coronavirus screen: At this time, the client does not indicate any symptoms associated with coronavirus-19. Ebola Screen: Patient denies travel to an Ebola-affected area in the 21 days before illness onset. Initial Sepsis Screen: Does the patient meet any 2 criteria? No. Patient's initial sepsis screen is negative. Does the patient have a suspected source of infection? No. Patient's initial sepsis screen is negative. Risk Assessment: Do you want to hurt yourself or someone else? Patient reports no desire to harm self or others. Onset of symptoms was November 2022. 10:12 Method Of Arrival: Ambulatory aa5 10:12 Acuity: ARIEL 4 aa5 Historical: - Allergies: 10:13 Ciprofloxacin; aa5 - PMHx: 10:13 Anxiety; aa5 - Immunization history:: Adult Immunizations unknown. - Social history:: Smoking status: Patient denies any tobacco usage or history of. - Family history:: not pertinent. Screenin:19 [facility] ED Fall Risk Assessment (Adult) History of falling in the last 3 months, aa5 including since admission Yes- single mechanical fall (1 pt) Confusion or Disorientation No (0 pts) Intoxicated or Sedated No (0 pts) Impaired Gait No (0 pts) Mobility Assist Device Used No (0 pt) Altered Elimination No (0 pt) Score/Fall Risk Level 0 - 2 = Low Risk Oriented to surroundings, Maintained a safe environment, Educated pt \T\ family on fall prevention, incl call for assistance when getting out of bed. Abuse screen: Denies threats or abuse. Nutritional screening: No deficits noted. Tuberculosis screening: No symptoms or risk factors identified. Assessment: 10:15 General: Appears comfortable, Behavior is calm, cooperative. Pain: Complains of pain in aa5 right thumb Pain radiates to right hand Pain currently is 5 out of 10 on a pain scale. Quality of pain is described as aching, Pain began 2 weeks ago Is continuous. Neuro: Level of Consciousness is awake, alert, obeys commands, Oriented to person, place, time, situation. Cardiovascular: Patient's skin is warm and dry. Respiratory: Airway is patent Respiratory effort is even, unlabored, Respiratory pattern is regular, symmetrical. GI: No signs and/or symptoms were reported involving the gastrointestinal system. : No signs and/or symptoms were reported regarding the genitourinary system. EENT: No signs and/or symptoms were reported regarding the EENT system. Derm: Skin is pink, warm \T\ dry. Musculoskeletal: Reports pain in right thumb. 11:07 Reassessment: No changes from previously documented assessment. Patient and/or family ll1 updated on plan of care and expected duration. Pain level reassessed. Patient is alert, oriented x 3, equal unlabored respirations, skin warm/dry/pink. Vital Signs: 10:12 BP 133 / 91; Pulse 82; Resp 18 S; Temp 97.9(TE); Pulse Ox 100% on R/A; Weight 81.65 kg aa5 (R); Height 5 ft. 10 in. (R); 10:12 Body Mass Index 25.83 (81.65 kg, 177.8 cm) aa5 ED Course: 10:08 Patient arrived in ED. am2 10:08 Asad Little MD is Private Physician. am2 10:10 Paulo Dolan MD is Attending Physician. [facility] 10:12 Arm band placed on. aa5 10:12 Patient has correct armband on for positive identification. Bed in low position. Call aa5 light in reach. Side rails up X 1. 10:13 Triage completed. aa5 10:17 Dona Blair, SHERRELL is Primary Nurse. aa5 11:48 Hand Right 3 View XRAY In Process Unspecified. EDMS 12:15 Velcro wrist splint applied to right wrist. ll1 12:44 Asad Little MD is Referral Physician. david 12:44 Alec Patel MD is Referral Physician. [facility] 12:55 Provided Education on: N/A. cm10 12:55 No provider procedures requiring assistance completed. Patient did not have IV access cm10 during this emergency room visit. Administered Medications: 11:07 Drug: Ibuprofen PO 800 mg Route: PO; ll1 12:15 Follow up: Response: No adverse reaction ll1 Medication: 12:55 VIS not applicable for this client. cm10 Outcome: 12:45 Discharge ordered by . david 12:55 Discharged to home ambulatory. cm10 12:55 Condition: good 12:55 Discharge instructions given to patient, Instructed on discharge instructions, follow up and referral plans. medication usage, Demonstrated understanding of instructions, follow-up care, medications, splint care, Prescriptions given X 3. 12:55 Patient left the ED. cm10 Signatures: Dispatcher [employer] EDMS Paulo Dolan MD MD cha Calderon, Audri, RN RN aa5 Monica Soler Lynsay, RN RN ll1 La Velázquez RN RN cm10
[2022-12-07 13:00] VITALS: BP 133/91; TEMP 97.9; O2SAT 100
--- NOTE | 2022-12-07 13:10 | RAD REPORT ---
EXAM DESCRIPTION: RAD - Hand Right 3 View - 12/07/2022 11:50 am CLINICAL HISTORY: Right hand pain status post injury FINDINGS: No fracture or dislocation is seen.
== END 2022-12-07 12:55 | disposition home or self-care (01) ==
LOC: ER 10:07
DX: S63.681A Other sprain of right thumb, initial encounter (principal)
CPT/HCPCS: 99283